=== PATIENT | male | born 1970 | race Caucasian/White ===

== ENCOUNTER 2021-09-22 07:51 | Outpatient (RCR) | payer OTHER, SELFPAY ==
--- NOTE | 2021-09-22 07:30 | PTOPEVAL ---
Thank you for referring Minor Alonzo to [facility].? The patient is scheduled to be seen for therapy? __2__x/week for 8 visits. Please review, sign, date and return this plan of care ИРИНА. I agree with and certify that the following plan of care is medically necessary. Referring Physician Date Admitting Provider: Attending Provider: Rosa Nazario, RULING TECHNICIAN Referring Provider: *PT Outpatient Evaluation Start: 09/22/21 06:50 Freq: Status: Active Protocol: Document 09/22/21 06:51 DEYIS (Rec: 09/22/21 07:30 [email or web address]) Therapy Assessment Status Assessment Status Assessment Status Evaluation Evaluation Information Problem Diagnosis right shoulder pain Onset 09/17/21 Subjective Information Pt. reports that he has had Query Text:As Reported By Patient/ worsening shoulder pain over Family the past 4 months. He states that he enjoys power lifting, but cannot lift as well due to pain. He notices pain with overhead reaching and describes pain in the front side of the right shoulder. He reports that he is on an anti-inflammatory, which has help with pain at night. He reports that his goal is to decrease his right shoulder pain. Pain Assessment Timing of Pain Assessment Timing of Pain Assessment Pre-Treatment Pain Scale Pain Scale Used Numeric (1 - 10) Self Report Pain Assessment Right Shoulder(s) Reported Pain Level 8 Lowest Pain Intensity 0 Greatest Pain Intensity 8 Pain Score Pain Score 8: Self Report Interventions Used Interventions Used By Clinicians Electrical Stimulation, Exercise,Heat Upper Extremity Range of Motion General Upper Extremity Range of Motion Gross Upper Extremity Range of Motion -right shoulder flexion 148 Comments degrees -left shoulder flexion 160 degrees -No asymmetry with combined shoulder IR and extension on both right and left. -95 degrees bilateral shoulder ER AROM Upper Extremity Muscle Strength Testing General Upper Extremity Strength Gross Upper Extremity Strength Comments -right shoulder flexion 4+/5 -left shoulder flexion 5/5 -right
--- NOTE | 2021-11-12 08:55 | PCPTNOTE ---
Mr. Alonzo attende 2 treatment sessions from 09/22/21 to 09/24/21. He has failed to return to the clinic and will be discharged from our care. Refer to last daily note for pt. discharge status.
== END 2021-09-24 14:14 | disposition home or self-care (01) ==
LOC: CHSPT 07:51
PROVIDERS: PCP Family Medicine; Visit Provider Nurse Practitioner Family
DX: M25.511 Pain in right shoulder (principal)
CPT/HCPCS: 97014; 97110; 97140; 97161; G0283

== ENCOUNTER 2022-01-09 11:19 | Outpatient (CLI) | payer OTHER, SELFPAY ==
[2022-01-09 11:41] LABS: Basophils Absolute Auto 0.06 K/mm3 (0.00-0.10); Basophils Percent Auto 1.1 % (0.0-1.0); Eosinophils Absolute Auto 0.14 K/mm3 (0.02-0.50); Eosinophils Percent Auto 2.6 % (1.0-6.0); Hematocrit 46.4 % (40.0-54.0); Hemoglobin 15.1 g/dL (14.0-18.0); Immature Granulocyte Absolute 0.01 K/mm3 (0.00-0.00); Immature Granulocyte Percent A 0.2 % (0.0-0.0); Lymphocytes Absolute Auto 1.72 K/mm3 (1.10-4.50); Lymphocytes Percent Auto 31.6 % (18.0-42.0); Mean Corpuscular HGB Conc 32.5 g/dL (32.0-36.0); Mean Corpuscular Hemoglobin 28.7 pg (27.0-31.0); Mean Platelet Volume 9.3 fl (8.7-11.0); Monocytes Absolute Auto 0.64 K/mm3 (0.10-0.90); Monocytes Percent Auto 11.8 % (2.0-11.0); Neutrophils Absolute Auto 2.9 K/mm3 (1.7-7.2); Neutrophils Percent Auto 52.7 % (50.0-70.0); Platelet Count Result 215 K/mm3 (150-420); Red Blood Count 5.27 M/mm3 (4.70-6.10); Red Cell Distribution Width 13.2 % (11.6-14.4); White Blood Count 5.4 K/mm3 (4.8-10.8)
[2022-01-09 12:25] LABS: Alanine Aminotransferase 41 U/L (16-63); Alkaline Phosphatase 45 U/L (46-116); Anion Gap 6 mmol/L (8-16); Aspartate Amino Transferase 22 U/L (15-37); Bilirubin,Total 0.5 mg/dL (0.00-1.00); Blood Urea Nitrogen 22 mg/dL (7-18); Calcium 8.8 mg/dL (8.5-10.1); Carbon Dioxide 31 mmol/L (21-32); Chloride 106 mmol/L (98-108); Estimated Glomerular Filt Rate > 60; Glucose 86 mg/dL (70-99); Osmolality Calculated 298 mOsm/kg (285-295); Potassium 4.8 mmol/L (3.5-5.1); Sodium 143 mmol/L (136-145)
== END 2022-01-09 11:20 | disposition home or self-care (01) ==
LOC: CHSLAB 11:21
PROVIDERS: PCP Family Medicine
DX: K80.20 Calculus of gallbladder without cholecystitis without obstruction (principal)
CPT/HCPCS: 36415; 80053; 85025